=== PATIENT | female | born 1970 | race Caucasian/White ===

== ENCOUNTER → 2020-01-27 | Outpatient (CLI) | payer OTHER ==
--- NOTE | 2020-01-27 14:48 | RAD ---
HIP RIGHT 2 VIEW DATE: 01/27/2020 12:00 AM INDICATION: RIGHT PAIN PAIN. COMPARISON: None. FINDINGS: Bones: There is no evidence of acute fracture or dislocation. Joints: Mild degenerative changes of the hip joint. Moderate degenerative changes of the symphysis pubis. Miscellaneous: None. IMPRESSION: No acute osseous abnormality. Mild degenerative changes of the hip. Electronically signed by: Erasto Sanchez MD (01/27/2020 2:45 PM) [id number]
== END ==
LOC: RAD 11:57
PROVIDERS: ATTEND Anesthesiology Pain Medicine
DX: M16.11 Unilateral primary osteoarthritis, right hip (principal)
CPT/HCPCS: 73502